=== PATIENT | male | born 1970 | race Caucasian/White ===

== ENCOUNTER 2023-07-30 09:22 | Outpatient (CLI) | payer OTHER, SELFPAY ==
--- OUTSIDE RECORDS SUMMARY | 2023-07-31 09:37 | XMS_ITS | Clinical Summary ---
Author Name Unknown Organization [id number] [facility] Address [place], [place] [address] Care Team Providers Care Family Counselor Name Role Phone [facility] Primary Care Provider Unavail able Allergies No known active allergies Medications No known medications Active Problems No known active problems Immunizations Name Administration Dates Next Due Hepatitis A (Adult) 11/26/2017,11/17/2011 Inactivated Polio Vaccine 11/17/2011 Tdap 11/17/2011,11/04/2007 Typhoid (injectable) 11/26/2017,11/17/2011 Social History Tobacco Use Types Packs/Day Years Used Date Smoking Tobacco: Never Smokeless Tobacco: Never Tobacco Cessation:Counseling Given: No Alcohol Use Standard Drinks/Week Comments Yes 0 (1 standard drink = 0.6 oz pur e alcohol) Sex and Gender Information Value Date Recorded Sex Assigned at Not on file Gender Identity Not on file Sexual Orientation Not on file Obstetrics History Last Filed Vital Signs Vital Sign Reading Time Taken Comments Blood Pressure 111/72 11/26/2017 1:30 PM CDT Pulse 67 11/26/2017 1:30 PM CDT Temperature 36.8 ??C (98.3 ??F) 11/26/2017 1:30 PM CD T Respiratory Rate - - Oxygen Saturation 96% 11/26/2017 1:30 PM CDT Inhaled Oxygen Concentration - - Weight 69.9 kg (154 lb) 11/26/2017 1:30 PM CDT Height 172 cm (5' 7.72) 11/26/2017 1:30 PM CDT Body Mass Index 23.61 11/26/2017 1:30 PM CDT Plan of Treatment Health Maintenance Due Date Last Done Comments HIV for age 15-65 1985 Hepatitis C screening for ag e 18-79 1988 Colonoscopy through age 75 12/17/2015 Depression screening for age 12+ 12/06/2016 12/07/2015, 07/12/2015 BMI (ht and wt on same day) for age 18+ 11/26/2018 11/26/2017, 12/07/2015, 07/12/2015 Lipids for age 45-75 12/06/2020 12/07/2015, 01/10/2015 Zoster (shingles) series for age 50+ (1 of 2) 2020 Tetanus booster 11/16/2021 11/17/2011, 11/04/2007 COVID-19 vaccine series (2022-24 season) 2022 Influenza for age 50-64 11/22/2023 Tdap Completed 11/17/2011, 11/04/2007 Pneumococcal series for age 6-64 Aged Out No longer eligible b ased on patient's age to complete this topic Procedures Procedure Name Priority Date/Time Associated Diagnosis Comments LIPID PANEL W REFLEX MEASURED LDL Routine 12/07/2015 10:46 AM CDT Preventative health care from Last 3 Months or Most Recently Relevant to Health Maintenance Results * (ABNORMAL) LIPID PANEL W REFLEX MEASURED LDL (12/07/2015 10:46 AM CDT) CHOLESTEROL,TOTAL 225(H) 100 - 199 mg/dL 12/07/2015 11:10 AM CDT [facility] TRIGLYCERIDES 132 <150 mg/dL 12/07/2015 11:10 AM CDT [facility] HDL CHOLESTEROL 39(L) >40 mg/dL 12/07/2015 11:10 AM CDT [facility] NON-HDL CHOLESTEROL 186(H) <145 mg/dl 12/07/2015 11:10 AM CDT [facility] CHOL/HDL RATIO 5.77(H) <4.50 12/07/2015 11:10 AM CDT [facility] LDL CHOLESTEROL 160(H) <=130 mg/dL 12/07/2015 11:10 AM T [facility] PATIENT STATUS FASTING 12/07/2015 11:10 AM T [facility] Blood BLOOD SPECIMEN / Unknown Venipuncture / Unknown 12/07/2015 10:46 AM CDT 12/07/2015 10:46 AM CDT Yeimy Srivastava MD CHEMISTRY [facility] [address] [place] [address], [place] [phone] from Last 3 Months or Most Recently Relevant to Health Maintenance Care Teams Family Counselor Relationship Specialty Start Date End Date Daniel Banks PCP - General 02/23/17
== END 2023-07-30 09:23 | disposition home or self-care (01) ==
LOC: NFLDREF 07-31 09:36
PROVIDERS: PCP Family Medicine; Referring Provider Family Medicine; Visit Provider Family Medicine
DX: E78.5 Hyperlipidemia, unspecified (principal); R03.0 Elevated blood-pressure reading, without diagnosis of hypertension; Z12.5 Encounter for screening for malignant neoplasm of prostate
CPT/HCPCS: 80053; 80061; G0103

== ENCOUNTER 2023-08-14 08:01 | Outpatient (CLI) | payer OTHER, SELFPAY ==
--- OUTSIDE RECORDS SUMMARY | 2023-08-14 08:04 | XMS_ITS | Clinical Summary ---
Author Organization [employer] [facility] Address [place], [place] [address] Care Team Providers Care Porcelain Enameling Supervisor Name Role Phone [facility] Primary Care Provider Unavail able Allergies No [...] booster 11/16/2021 11/17/2011, 11/04/2007 COVID-19 vaccine series ( - 2022-24 season) 2022 Influenza for age 50-64 11/22/2023 [...] - 199 mg/dL 12/07/2015 11:10 AM CDT [facility] TRIGLYCERIDES 132 <150 mg/dL 12/07/2015 11:10 AM CDT [facility] HDL CHOLESTEROL 39(L) >40 mg/dL 12/07/2015 11:10 AM CDT [facility] NON-HDL CHOLESTEROL 186(H) <145 mg/dl 12/07/2015 11:10 AM CDT [facility] CHOL/HDL RATIO 5.77(H) <4.50 12/07/2015 11:10 AM CDT [facility] LDL CHOLESTEROL 160(H) <=130 mg/dL 12/07/2015 11:10 AM CDT [facility] PATIENT STATUS FASTING 12/07/2015 11:10 AM CDT [facility] Blood BLOOD SPECIMEN / Unknown Venipuncture / Unknown 12/07/2015 10:46 AM CDT 12/07/2015 10:46 AM CDT Yeimy Srivastava MD CHEMISTRY [facility] [address] [place] [address], from Last 3 Months or Most Recently Relevant to Health Maintenance Care Teams Porcelain Enameling Supervisor Relationship Specialty Start Date End Date Daniel Banks PCP - General 02/23/17
--- NOTE | 2023-08-14 09:03 | W.ANESCHARGE ---
Anesthesia Charges Start Date/Time Anesthesia Start Date: 08/14/23 Anesthesia Start Time: 08:38 Stop Date/Time Anesthesia Stop Date: 08/14/23 Anesthesia Stop Time: 09:03
--- NOTE | 2023-08-14 09:05 | W.ANESCHARGE ---
Anesthesia Charges Start Date/Time Anesthesia Start Date: 08/14/23 Anesthesia Start Time: 08:38 Stop Date/Time Anesthesia Stop Date: 08/14/23 Anesthesia Stop Time: 09:03
== END 2023-08-14 08:02 | disposition home or self-care (01) ==
LOC: OP CLINIC 08:02
PROVIDERS: PCP Family Medicine; Visit Provider Internal Medicine
DX: Z12.11 Encounter for screening for malignant neoplasm of colon (principal); K63.5 Polyp of colon; K57.30 Diverticulosis of large intestine without perforation or abscess without bleeding
CPT/HCPCS: 00811; 45380; 88305; J2704

== ENCOUNTER 2024-03-03 15:07 | Outpatient (CLI) | payer OTHER, SELFPAY | END 2024-03-03 15:08 | disposition home or self-care (01) | LOC: NFLDREF 03-04 08:45 | PROVIDERS: PCP Family Medicine; Referring Provider Family Medicine; Visit Provider Family Medicine | DX: E78.5 Hyperlipidemia, unspecified (principal); B35.1 Tinea unguium | CPT/HCPCS: 84450; 84460 ==